=== PATIENT | female | born 1955 | race Caucasian/White ===

== ENCOUNTER → 2023-10-06 15:58 | Outpatient (REF) | payer MEDICARE, OTHER, SELFPAY | LOC: HWRAD 15:58 | PROVIDERS: ATTENDING PHYSICIAN Family Medicine | DX: R30.0 Dysuria (principal) | CPT/HCPCS: 74176 ==

== ENCOUNTER → 2024-09-22 12:00 | Outpatient (REF) | payer MEDICARE, OTHER, SELFPAY | LOC: DHSLP 12:00 | PROVIDERS: ATTENDING PHYSICIAN Internal Medicine; FAMILY PHYSICIAN Physician Assistant Medical | DX: G47.33 Obstructive sleep apnea (adult) (pediatric) (principal); R09.02 Hypoxemia | CPT/HCPCS: 95800 ==

== ENCOUNTER 2024-10-13 07:20 | Emergency (ER) | payer MEDICARE, OTHER, SELFPAY ==
[2024-10-13 07:36] VITALS: BP 137/69
--- NOTE | 2024-10-13 08:46 | ED.GENMED ---
History of Present Illness
General
Chief Complaint: Flank Pain
Source: patient
Exam Limitations: none
Time Seen by Provider: 10/13/24 08:27
Nursing documentation reviewed up to this point in time: agreed with
History of Present Illness
History of Present Illness:
Patient is a 69-year-old female who presents to the emergency department with acute onset right flank pain. Patient reports that sharp pain in her right lower back which woke her from sleep around 5:30 AM this morning. She states the pain has been
relatively constant with waves of increased severity. She denies any radiation of pain into the abdomen or groin. She has had frequent episodes of vomiting throughout the morning however denies any known fever. No changes in bowel habits. She
does state that she had a few days of mild dysuria and did notice some blood in her urine the other day however this has resolved. No chest pain or shortness of breath.
Patient has a history of kidney stones in the past although they have always been on the left side. She no longer follows with a urologist.
Past History
Past History
ED Past Medical History: Other (Renal Calc)
ED Past Surgical History: Negative Cardiac
Social History
Tobacco: Non-smoker
Alcohol: None
Drug: None
Personal:
Living: with family
Employment: Employed
Family History
Family History: Hypertension
Review of Systems
Review of Systems
Allergies reviewed?: Yes
All Other Systems: ROS reviewed and negative except as documented in HPI and ROS
Phy Exam
Physical Exam
Physical Exam:
Vitals: Mildly hypertensive, otherwise vital signs stable. Afebrile
General: Patient is uncomfortable appearing due to pain.
Skin: Warm and dry, no rashes or lesions
Head: Normocephalic, atraumatic
Eyes: Sclera nonicteric.
Throat: Protecting airway
Neck: Normal ROM, no cervical spine tenderness, no meningismus
Cardiac: Regular rate and rhythm, no murmurs.
Pulm: Normal respiratory effort, no wheezes, rales, rhonchi heard on exam
Abdomen: Abdomen soft and nontender. No focal tenderness McBurney's point. Mild right CVA tenderness. No rash.
Extremities: No evidence of cyanosis or edema
Neuro: AAOx3. Grossly intact.
Psychiatric: Normal affect.
Course
Orders/Labs/Results
Orders:
Orders
10/13/24 08:45
Abdomen/Pelvis wo Contrast CT [CT Abd/pelvis Wo Iv Cont] Urgent
Comment:
Reason For Exam: Right flank pain, vomiting
0.9% Sodium Chloride 1000 ml [Nss] 1,000 ml IV BOLUS
Ketorolac [Toradol] 15 mg IV NOW STA
Ondansetron Injectable [Zofran] 4 mg IV NOW STA
10/13/24 08:58
Complete Blood Count/With Diff Urgent
Comprehensive Metabolic Panel Urgent
Urinalysis Reflex To Culture Urgent
Date Specimen was Collected: 10/13/24
Time Specimen was Collected: 08:31
Urine Microscopic Reflex Cult Urgent
Urine Culture Urgent
MYRA Source: U
Specimen Description:
Date Specimen was Collected: 10/13/24
Time Specimen was Collected: 08:31
10/13/24 10:24
Abdomen/Pelvis wo Contrast CT [CT Abd/pelvis Wo Iv Cont] Urgent
Comment:
Reason For Exam: right flank pain
10/13/24 11:27
Add On - Microbiology Urgent
Tests Added?: urine culture
Abnormal Lab Results
10/13/24
08:58
WBC 11.8 H 10^3/uL
(4.8-10.8)
MCH 31.1 H pg
(27.0-31.0)
Abs Immat Gran (auto) 0.1 H 10^3/uL
(0-0.05)
Absolute Neuts (auto) 10.2 H 10^3/uL
(1.4-6.5)
Absolute Lymphs (auto) 0.8 L 10^3/uL
(1.2-3.4)
Absolute Monos (auto) 0.7 H 10^3/uL
(0.1-0.6)
Neutrophils % 86.3 H %
(42.2-75.2)
Lymphocytes % 6.5 L %
(20.5-51.1)
BUN 18 H mg/dl
(7-17)
Glucose 128 H mg/dl
(70-99)
Total Bilirubin 1.5 H mg/dl
(0.2-1.3)
Urine Ketones 3+ A
(Negative)
Ur Occult Blood Reflex 4+ A
(Negative)
Leukocyte Esterase Rfl 1+ A
(Negative)
Urine RBC 50-60 A /HPF
(0-2)
Urine Bacteria (Reflex) Few A
(Negative)
Urine Albumin (Reflex) 2+ A
(Neg - Trace)
10/13/24 08:58
10/13/24 08:58
Vital Signs
Initial and Last Documented VS:
Initial Vital Signs
Temp Pulse Resp BP Pulse Ox
97.6 F 77 20 137/69 100
10/13/24 07:36 10/13/24 07:36 10/13/24 07:36 10/13/24 07:36 10/13/24 07:36
Last Documented Vital Signs
Temp Pulse Resp BP Pulse Ox
97.6 F 77 20 137/69 100
10/13/24 07:36 10/13/24 07:36 10/13/24 07:36 10/13/24 07:36 10/13/24 08:50
MDM/Problems Addressed
Differential Diagnosis Includes:
Not limited to: Renal colic, cystitis, pyelonephritis, appendicitis, diverticulitis, muscle strain, etc.
MDM/Problems Addressed:
69-year-old female with acute onset right flank pain this morning associated with nausea, vomiting. She did have a few days of mild dysuria and an episode of hematuria. No fevers or changes in bowel habits. Vital signs and physical exam as above.
Patient overall well-appearing however appears uncomfortable due to pain. Abdomen soft and nontender. There is some mild right sided CVA tenderness. Cardio/pulmonary assessment unremarkable.
Most suspicious for renal colic given acute onset nature of pain. Other considerations would be pyelonephritis, muscle strain. Lower suspicion for acute intra-abdominal infection given benign abdominal exam. No rash to suggest zoster.
ED plan: Labs, UA, noncontrast CT scan abdomen/pelvis. Will treat pain and give IV fluids.
Update: Labs with very mild leukocytosis of 11.8 -likely reactive from vomiting. Chemistry without acute findings. Urine with 50�60 RBCs however no significant findings suggestive of infection. Patient has had significant improvement in symptoms.
CT pending.
Update: CT scan reveals small nonobstructing stone on right side without any evidence of obstructing ureteral calculi. Patient symptoms have nearly improved. She remains very well-appearing. It is possible that she passed kidney stone. Do not
suspect intra-abdominal infectious process or vascular catastrophe. No other significant findings on workup in ED. Given improvement in symptoms�do feel stable for discharge home. Will ensure that UA is sent for culture. Will advise follow-up
with urology given known history of kidney stones. Very strict return precautions discussed with patient regarding return of symptoms or any signs of infection. Patient comfortable with plan.
Chronic conditions affecting care:
History of kidney stones
Acute Exacerbation and/or Progression of Chronic Illness:
N/A
*Radiology
Radiology exam reviewed: radiology read reviewed
*Pulse Oximetry
SaO2: 100
Oxygen Mode of Delivery: Room air
Patient hypoxic: no
*EKG
Interpreted by ED Provider?: NA
*Vp Delivery Interpretation
Rate: Vp Delivery- N/A
*Critical Care Note
Total Time (30-74mins, 75-104mins- exclusive of procedures): Not Applicable
ED Attending Note
-
Portions of this chart may have been created with voice recognition software.� Occasional wrong word or��sound alike� substitutions may have occurred due to the inherent limitations of voice recognition software.
Discharge Plan
Departure
Patient Disposition: Home (Routine Discharge)
Date of Disposition: 10/13/24
Time of Disposition: 11:28
Patient with high blood pressure during this ER visit?: Yes
Discharge Problem:
Right flank pain
Instructions: Flank Pain (DC), BLOOD PRESSURE
Prescriptions:
New
tamsulosin [Flomax] 0.4 mg capsule
0.4 mg PO DAILY Qty: 10 0RF
No Action
multivitamin 1 EACH tablet
1 tab PO DAILY
meloxicam 15 MG tablet
15 mg PO DAILY
loratadine-pseudoephedrine 240 MG/10 MG tablet extended release 24 hr
1 tab PO DAILY
Patient Comments:
spring & fall, daily in spring
naproxen sodium [Aleve] 220 MG tablet
220 mg PO PRN PRN (Reason: pain)
rosuvastatin 5 MG tablet
5 mg PO DAILY
Referrals:
Lubna Calderon PA [Family Provider, Family Practice]
Gabo Longo MD [Active, Urology] - Follow up in 5-7 days
Activity Restrictions/Additional Instructions:
RETURN TO THE EMERGENCY DEPARTMENT WITH ANY FEVER, CHILLS, PERSISTENT/WORSENING ABDOMINAL OR FLANK PAIN, NAUSEA/VOMITING, SYMPTOMS OF UTI, SHORTNESS OF BREATH, WORSENING CURRENT SYMPTOMS, OR ANY OTHER CONCERNS
- As discussed�your white blood cell count was mildly elevated in the emergency department. Your urine had many RBCs however no evidence of an acute infection.
- It is possible that your symptoms are secondary to a passed kidney stone. Please continue to take Tylenol/Motrin at home and stay well-hydrated.
- Follow-up with primary care/urology for further evaluation/management to ensure that your red blood cells in urine resolved.
Monitor your symptoms closely and return to the emergency department with any acute worsening/new symptoms or any other concerns
Interventions
Interventions:
*Risk Screen - Suicide Last Done: 10/13/24 07:36
*ED COVID-19 Vaccine History Last Done: 10/13/24 07:36
Discharge Date and Time
Print Language: ARMENIAN
[2024-10-13] MEDS: NSS 1000 IV (08:59)
[2024-10-13] MEDS: ZOFRAN 4 MG IV (08:59)
[2024-10-13] MEDS: TORADOL 15 MG IV (08:59)
[2024-10-13 09:15] LABS: Hematocrit 42.9 % (37.0-47.0); Hemoglobin 14.7 g/dL (12.0-16.0); Mean Corp Hgb Conc. 34.3 g/dL (33.0-37.0); Mean Corpuscular Volume 90.7 fL (81.0-99.0); Nucleated Red Blood Cells % 0 %; Platelet Count 302 10^3/uL (130-400); Red Cell Dist. Width 13.2 % (11.5-14.5)
[2024-10-13 09:34] LABS: ALT (SGPT) 26 U/L (0-35); AST (SGOT) 27 U/L (14-36); Albumin 5.0 g/dl (3.5-5.0); Alkaline Phosphatase 75 U/L (38-126); Blood Urea Nitrogen 18 mg/dl (7-17); Calcium 10.1 mg/dl (8.4-10.2); Carbon Dioxide 22 mmol/L (22-30); Chloride 105 mmol/L (98-107); Glucose 128 mg/dl (70-99); Potassium 3.9 mmol/L (3.5-5.1); Sodium 140 mmol/L (135-145); Total Protein 7.7 g/dl (6.3-8.2); eGFR > 60.00
[2024-10-13 09:36] LABS: Urine Character Clear (Clear)
[2024-10-13 09:53] LABS: Urine Red Blood Cell 50-60 /HPF (0-2); Urine Squamous Cell 0-2 /LPF (Few); Urine White Cell 0-2 /HPF (0-5)
[2024-10-13 12:10] VITALS: BP 139/75
== END 2024-10-13 12:00 | disposition home or self-care (01) ==
LOC: EMR 07:20
PROVIDERS: Physician Assistant; EMERGENCY PHYSICIAN Student in an Organized Health Care Education/Training Program; FAMILY PHYSICIAN Physician Assistant Medical
DX: R10.9 Unspecified abdominal pain (principal)
CPT/HCPCS: 99284; 96374; 96375; 96361; 74176; 80053; 81003; 81015; 85025; 87086

== ENCOUNTER 2025-01-09 06:16 | Day surgery (SDC) | payer MEDICARE, OTHER, SELFPAY ==
--- NOTE | 2024-12-19 13:46 | CM ---
Demographics: confirmed
Living situation: lives with
Support Person Post Operatively:
History of
VN: No
SNF: No
Outpatient: [facility], appointment made for 01/12
Has patient purchased required equipment: walker, gel machine. raised toilet seat
PCP: active
Pharmacy: [facility]
Post Operative Discharge Plan: [facility] and then transition to outpatient PT.
--- NOTE | 2024-12-26 10:10 | VNURNOTE ---
Addendum entered by Daphney Zhang RN 12/26/24 10:15:
Rec'ed callback from pt. Explained SDS program. She confirms that her spouse will be available to help her post op. She will obtain a RW today. Advised her to bring RW with her day of surgery. She denies pets at home. She confirms that she has
outpt PT scheduled for 01/12. Patient has liaison contact number.
Original Note:
Chart reviewed. Patient scheduled for SDS 01/[address] Wagner[address] [facility] lia[facility] reached out to patient to explain SDS joint protocol program. No answer, left message with contact info. Referral placed in [facility].
[2024-12-26 14:01] VITALS: BMI 38.0
[2024-12-26 14:06] LABS: Hematocrit 42.8 % (37.0-47.0); Hemoglobin 14.2 g/dL (12.0-16.0); Mean Corp Hgb Conc. 33.2 g/dL (33.0-37.0); Mean Corpuscular Volume 90.9 fL (81.0-99.0); Platelet Count 293 10^3/uL (130-400); Red Cell Dist. Width 13.0 % (11.5-14.5)
[2024-12-26 14:34] LABS: Glycohemoglobin (HgbA1c) 5.5 % (4.0-5.9)
[2024-12-26 14:40] LABS: ALT (SGPT) 24 U/L (0-35); AST (SGOT) 21 U/L (14-36); Albumin 4.5 g/dl (3.5-5.0); Alkaline Phosphatase 76 U/L (38-126); Blood Urea Nitrogen 15 mg/dl (7-17); Calcium 9.5 mg/dl (8.4-10.2); Carbon Dioxide 31 mmol/L (22-30); Chloride 101 mmol/L (98-107); Estimated Creatinine Clearance 116 ml/min; Glucose 99 mg/dl (70-99); Potassium 4.3 mmol/L (3.5-5.1); Sodium 138 mmol/L (135-145); Total Protein 7.1 g/dl (6.3-8.2); eGFR > 60.00
[2024-12-26 18:05] VITALS: BMI 38.0
[2025-01-09] VITALS (15 sets, daily range): BP systolic 100–155; BP diastolic 63–85
[2025-01-09] MEDS: CELEBREX 200 MG PO (07:31)
[2025-01-09] MEDS: NORMOSOL-R/PLASMALYTE-A 1000 IV ×2 (07:31→12:14)
[2025-01-09] MEDS: TYLENOL 650 MG PO ×2 (07:31→12:15)
[2025-01-09] MEDS: ROXICODONE 5 MG PO (11:32)
[2025-01-09] MEDS: CYKLOKAPRON 650 MG PO (12:15)
[2025-01-09] MEDS: ANCEF 5 IV (12:17)
== END 2025-01-09 13:50 | disposition home health service (06) ==
LOC: SDS 06:16
PROVIDERS: ATTENDING PHYSICIAN Specialist; FAMILY PHYSICIAN Physician Assistant Medical; OTHER PHYSICIAN Physician Assistant
DX: M17.11 Unilateral primary osteoarthritis, right knee (principal); E66.9 Obesity, unspecified; Z68.38 Body mass index [BMI] 38.0-38.9, adult
CPT/HCPCS: 27447; 36415; 73560; 80053; 83036; 85027; 87070; 93005; 97163; C1713; C1776